=== PATIENT | male | born 1955 | race Two or more races ===

== ENCOUNTER 2021-03-09 07:24 | Outpatient (CLI) | payer OTHER | END 2021-03-09 07:34 | disposition home or self-care (01) | LOC: LAB 07:24 | PROVIDERS: ATTEND Orthopaedic Surgery | DX: D68.8 Other specified coagulation defects (principal); N39.0 Urinary tract infection, site not specified; D64.89 Other specified anemias; E88.89 Other specified metabolic disorders; Z22.322 Carrier or suspected carrier of Methicillin resistant Staphylococcus aureus; I49.8 Other specified cardiac arrhythmias; I10 Essential (primary) hypertension; Z76.89 Persons encountering health services in other specified circumstances ==

== ENCOUNTER 2021-03-24 09:20 | Outpatient (CLI) | payer OTHER ==
[~2021-03-24 09:20] MED LIST: COZAAR100 MG PO; HYDROCHLOROTHIA25 MG PO
== END 2021-03-24 09:35 | disposition home or self-care (01) ==
LOC: RAD 09:20
PROVIDERS: ATTEND Orthopaedic Surgery
DX: M75.121 Complete rotator cuff tear or rupture of right shoulder, not specified as traumatic (principal)

== ENCOUNTER 2021-03-24 09:55 | Day surgery (SDC) | payer OTHER | END 2021-03-24 19:30 | disposition home or self-care (01) | LOC: CIR.AMB 09:55 | PROVIDERS: ATTEND Orthopaedic Surgery | DX: M75.102 Unspecified rotator cuff tear or rupture of left shoulder, not specified as traumatic (principal); M19.011 Primary osteoarthritis, right shoulder ==

== ENCOUNTER 2021-07-23 09:08 | Outpatient (CLI) | payer OTHER | END 2021-07-23 09:23 | disposition home or self-care (01) | LOC: LAB 09:08 | PROVIDERS: ATTEND Orthopaedic Surgery | DX: D64.9 Anemia, unspecified (principal); E88.9 Metabolic disorder, unspecified; D68.8 Other specified coagulation defects; N39.0 Urinary tract infection, site not specified; A49.02 Methicillin resistant Staphylococcus aureus infection, unspecified site; E11.9 Type 2 diabetes mellitus without complications; Z76.89 Persons encountering health services in other specified circumstances; I10 Essential (primary) hypertension; I49.9 Cardiac arrhythmia, unspecified ==

== ENCOUNTER 2021-07-31 05:32 | Day surgery (SDC) | payer OTHER ==
[~2021-07-31] VITALS: Ht 175.3 cm; Wt 73.5 kg
[~2021-07-31 05:32] MED LIST changes: +VERELAN240 MG PO
== END 2021-07-31 16:20 | disposition home or self-care (01) ==
LOC: U 05:32 → CIR.AMB 05:32
PROVIDERS: ATTEND Orthopaedic Surgery
DX: M23.232 Derangement of other medial meniscus due to old tear or injury, left knee (principal); I10 Essential (primary) hypertension; E78.5 Hyperlipidemia, unspecified; Z20.822 Contact with and (suspected) exposure to COVID-19

== ENCOUNTER 2022-09-13 07:42 | Outpatient (CLI) | payer OTHER | END 2022-09-13 07:49 | disposition home or self-care (01) | LOC: RAD 07:42 | PROVIDERS: ATTEND Orthopaedic Surgery | DX: M70.61 Trochanteric bursitis, right hip (principal) ==